=== PATIENT | female | born 1995 | race Two or more races ===

== ENCOUNTER 2016-11-16 21:04 | Emergency (ER) | payer MEDICAID ==
[~2016-11-16] VITALS: Ht 167.6 cm; Wt 68.0 kg
[2016-11-16 22:38] LABS: Urine Bilirubin Negative (Negative); Urine Blood Negative /uL (Negative); Urine Color Yellow (Yellow); Urine Glucose Normal (Normal); Urine Ketone Negative (Negative); Urine Nitrite Negative (Negative); Urine RBC <1 /hpf (0 - 4); Urine Squamous Epithelial Cell FEW /hpf (<5); Urine Urobilinogen Normal (Negative)
[2016-11-17 00:30] VITALS: BP 113/59
== END 2016-11-17 01:00 | disposition left against medical advice (07) ==
LOC: ER 21:11
DX: N39.0 Urinary tract infection, site not specified (principal); Z53.21 Procedure and treatment not carried out due to patient leaving prior to being seen by health care provider
CPT/HCPCS: 81001; 81025

== ENCOUNTER 2018-04-27 16:42 | Emergency (ER) | payer MEDICAID ==
[~2018-04-27] VITALS: Ht 167.6 cm; Wt 77.1 kg
[2018-04-27 17:13] VITALS: BP 132/81
[2018-04-27] MEDS ORDERED: IBUPROFEN 800 MG TAB PO ONE (17:45)
== END 2018-04-27 17:52 | disposition home or self-care (01) ==
LOC: ER 16:46
DX: S93.401A Sprain of unspecified ligament of right ankle, initial encounter (principal); W01.0XXA Fall on same level from slipping, tripping and stumbling without subsequent striking against object, initial encounter; Y93.89 Activity, other specified; Y99.8 Other external cause status; Y92.89 Other specified places as the place of occurrence of the external cause
CPT/HCPCS: 73610; 81025

== ENCOUNTER 2018-12-04 01:53 | Emergency (ER) | payer MEDICAID ==
[~2018-12-04] VITALS: Ht 167.6 cm; Wt 80.7 kg
[2018-12-04 02:26] LABS: Basophils # (auto) 0.1 uL; Basophils % (auto) 0.4 % (0.0-2.0); Eosinophils # (auto) 0 uL; Eosinophils % (auto) 0.3 % (0.0-7.0); Hemoglobin 14.7 g/dL (12.2-16.2); Lymphocytes # (auto) 1.6 uL; Lymphocytes % (auto) 11.6 % (10.0-50.0); Mean Corpuscular Hemoglobin 29.5 pg (28.0-32.0); Mean Corpuscular Hgb Conc. 35.1 g/dL (32.0-36.0); Monocytes # (auto) 0.7 uL; Monocytes % (auto) 5.3 % (0.0-12.0); Neutrophils # (auto) 11.4 uL; Neutrophils % (auto) 82.4 % (37.0-80.0); Nucleated Red Blood Cells % 0.1 %; Platelet Count (auto) 422 10^3/uL (140-450); Red Cell Distribution Width 12.7 % (11.8-14.3); White Blood Cell 13.8 10^3/uL (4.4-10.8)
[2018-12-04 02:44] LABS: BUN/Creatinine Ratio 14.4; Calcium 9.2 mg/dL (8.5-10.1); Potassium 3.6 mmol/L (3.5-5.1)
[2018-12-04 02:47] LABS: Bilirubin, Total 0.5 mg/dL (0.2-1.0); Total Protein 8.2 g/dL (6.4-8.2)
[2018-12-04 03:58] LABS: Urine Bacteria FEW /hpf (None Seen); Urine Blood Negative /uL (Negative); Urine Specific Gravity 1.029 (1.001-1.035); Urine WBC 8 /hpf (0 - 5)
[2018-12-04] MEDS ORDERED: DONNATAL 5ml ORAL Elix (BELLADONNA ALK-PHENOBARB) PO ONE (05:45)
[2018-12-04] MEDS ORDERED: LIDOCAINE VISCOUS 2% 15ML UD PO ONE (05:45)
[2018-12-04] MEDS ORDERED: ALUM & MAG HYDROX-SIMETH LIQ(MAALOX) 30 ML PO ONE (05:45)
[2018-12-04 06:01] VITALS: BP 128/62
== END 2018-12-05 06:05 | disposition home or self-care (01) ==
LOC: MERGE 01:55 → ER 01:55
DX: K21.9 Gastro-esophageal reflux disease without esophagitis (principal); N39.0 Urinary tract infection, site not specified
CPT/HCPCS: 36415; 74176; 80053; 81001; 82150; 83690; 84702; 85025

== ENCOUNTER 2019-04-30 01:44 | Emergency (ER) | payer MEDICAID ==
[~2019-04-30] VITALS: Ht 167.6 cm; Wt 84.4 kg
[2019-04-30 02:04] LABS: Basophils # (auto) 0.1 uL; Basophils % (auto) 0.6 % (0.0-2.0); Eosinophils # (auto) 0.2 uL; Eosinophils % (auto) 1.4 % (0.0-7.0); Hematocrit 41.5 % (36.0-46.0); Hemoglobin 14.2 g/dL (12.2-16.2); Lymphocytes # (auto) 1.7 uL; Lymphocytes % (auto) 14.1 % (10.0-50.0); Mean Corpuscular Hemoglobin 29.2 pg (28.0-32.0); Mean Corpuscular Hgb Conc. 34.2 g/dL (32.0-36.0); Mean Corpuscular Volume 85.3 fL (80.0-100.0); Monocytes # (auto) 0.9 uL; Monocytes % (auto) 7.5 % (0.0-12.0); Neutrophils # (auto) 9.2 uL; Neutrophils % (auto) 76.4 % (37.0-80.0); Nucleated Red Blood Cells % 0.1 %; Platelet Count (auto) 362 10^3/uL (140-450); Red Blood Cells 4.86 10^6/uL (4.0-5.20); Red Cell Distribution Width 13.7 % (11.8-14.3)
[2019-04-30 02:28] LABS: Albumin 3.8 g/dL (3.4-5.0); BUN/Creatinine Ratio 16.5; Calcium 9.3 mg/dL (8.5-10.1)
[2019-04-30 02:31] LABS: Bilirubin, Total 0.5 mg/dL (0.2-1.0); Total Protein 7.9 g/dL (6.4-8.2)
[2019-04-30 02:45] LABS: Urine WBC None Seen /hpf (0 - 5)
[2019-04-30 03:08] LABS: Urine Bacteria NONE SEEN /hpf (None Seen); Urine Blood Negative /uL (Negative); Urine Specific Gravity 1.008 (1.001-1.035)
[2019-04-30 04:54] VITALS: BP 138/92
[2019-04-30] MEDS ORDERED: ALUM & MAG HYDROX-SIMETH LIQ(MAALOX) 30 ML PO ONE (05:30)
== END 2019-04-30 05:38 | disposition home or self-care (01) ==
LOC: ER 01:47
DX: K21.9 Gastro-esophageal reflux disease without esophagitis (principal)
CPT/HCPCS: 36415; 76705; 80053; 81001; 81025; 83690; 85025

== ENCOUNTER 2020-11-01 12:23 | Emergency (ER) | payer MEDICAID ==
[~2020-11-01] VITALS: Ht 167.6 cm; Wt 84.4 kg
[2020-11-01 12:50] VITALS: BP 121/75
[2020-11-01] MEDS ORDERED: methylPREDNISolone SOD SUCC 125 MG/2 ML VL IM ONE (13:30)
[2020-11-01] MEDS ORDERED: KETOROLAC TROMETH 60MG/2ML VIAL IM ONE (13:30)
== END 2020-11-01 14:50 | disposition home or self-care (01) ==
LOC: ER 12:23
DX: M62.830 Muscle spasm of back (principal)
CPT/HCPCS: 81002; 96372; 99284; J1885; J2930

== ENCOUNTER 2020-11-06 05:43 | Emergency (ER) | payer MEDICAID ==
[~2020-11-06] VITALS: Ht 167.6 cm; Wt 84.4 kg
[2020-11-06 06:53] VITALS: BP 119/92
[2020-11-06] MEDS ORDERED: METHOCARBAMOL 500 MG TAB PO ONE (08:00)
[2020-11-06] MEDS ORDERED: KETOROLAC TROMETH 60MG/2ML VIAL IM ONE (08:00)
== END 2020-11-06 08:55 | disposition home or self-care (01) ==
LOC: ER 05:43
DX: M62.830 Muscle spasm of back (principal)
CPT/HCPCS: 96372; 99283; J1885

== ENCOUNTER 2024-05-26 12:39 | Emergency (ER) | payer BC, MEDICAID ==
[~2024-05-26] VITALS: Ht 167.6 cm; Wt 84.0 kg
[2024-05-26] MEDS: KETOROLAC TROMETH 30 MG/ML 1ML VIAL IM ONE (14:15)
[2024-05-26] MEDS: methylPREDNISolone SOD SUCC 125 MG/2 ML VL IM ONE (14:16)
[2024-05-26] MEDS ORDERED: CYCL-837 PO (14:32)
[2024-05-26 14:41] VITALS: BP 146/78; PULSE 78; RESP 17; TEMP 98.7; O2SAT 97
== END 2024-05-26 14:42 | disposition home or self-care (01) ==
LOC: ER 12:39
DX: M54.59 Other low back pain (principal); M54.2 Cervicalgia
CPT/HCPCS: 96372; 99284; J1885; J2919